=== PATIENT | male | born 1955 | race Caucasian/White ===

== ENCOUNTER 2023-06-10 12:12 | Emergency (ER) | payer BC, SELFPAY ==
[2023-06-10 12:19] VITALS: BP 158/87
[2023-06-10 12:49] LABS: % Basophils 0.4 % (0-2); % Immature Granulocytes 0.5 % (0-0.5); % Lymphocytes 11.6 % (20.5-51.1); % Monocytes 9.1 % (1.7-9.3); % Neutrophils 77.4 % (42.2-75.2); Absolute Eosinophils 0.1 10^3/uL (0-0.7); Absolute Immature Granulocytes 0.1 10^3/uL (0-0.05); Absolute Lymphocytes 1.2 10^3/uL (1.2-3.4); Absolute Monocytes 0.9 10^3/uL (0.1-0.6); Absolute Neutrophils 7.7 10^3/uL (1.4-6.5); Hematocrit 48.5 % (39.0-52.0); Hemoglobin 16.6 g/dL (13.0-18.0); Mean Corp Hgb Conc. 34.2 g/dL (33.0-37.0); Mean Corpuscular Hgb 30.1 pg (27.0-31.0); Mean Platelet Volume 9.5 fL (7.4-10.4); Nucleated Red Blood Cells % 0 % (-); Platelet Count 222 10^3/uL (130-400); Red Blood Cell Count 5.51 10^6/uL (4.70-6.10); White Blood Cell Count 9.9 10^3/uL (4.8-10.8)
[2023-06-10 12:53] LABS: Urine Albumin Negative (Neg - Trace); Urine Bilirubin Negative (Negative); Urine Character Clear (Clear); Urine Color Yellow; Urine Glucose Negative (Negative); Urine Ketone 1+ (Negative); Urine Leukocyte Trace (Negative); Urine Nitrite Negative (Negative); Urine Occult Blood Negative (Negative); Urine Specific Gravity 1.025 (<1.030); Urine Urobilinogen Negative (Neg - 1+)
[2023-06-10 13:03] LABS: ALT (SGPT) 20 U/L (0-50); AST (SGOT) 25 U/L (17-59); Albumin 4.2 g/dl (3.5-5.0); Alkaline Phosphatase 54 U/L (38-126); Blood Urea Nitrogen 18 mg/dl (9-20); Calcium 9.2 mg/dl (8.4-10.2); Carbon Dioxide 25 mmol/L (22-30); Chloride 103 mmol/L (98-107); Glucose 88 mg/dl (70-99); Lipase 192 U/L (23-300); Potassium 4.7 mmol/L (3.5-5.1); Sodium 135 mmol/L (135-145); Total Bilirubin 0.8 mg/dl (0.2-1.3); Total Protein 7.1 g/dl (6.3-8.2); eGFR > 60.00
[2023-06-10 13:21] LABS: Urine Mucus Many; Urine Red Blood Cell 0-2 /HPF (0-2); Urine White Cell 0-2 /HPF (0-5)
--- NOTE | 2023-06-10 13:59 | ED.GENMED ---
History of Present Illness
<Barbara Jeffrey PA-C - Last Filed: 06/15/23 22:40>
General
Chief Complaint: Abdominal Pain
Source: patient
Exam Limitations: none
Time Seen by Provider: 06/10/23 13:23
Nursing documentation reviewed up to this point in time: agreed with
Travel History
Have you had any contact with someone who has COVID-19?: No
Do you have any symptoms of coronavirus? Fever > 100 degrees, chills, cough, shortness of breath, sore throat, loss of taste or smell, muscle aches, or headache?: No
History of Present Illness
History of Present Illness:
Patient is a 67 year old male with known diverticulosis presenting for evaluation of lower abdominal pain. Symptoms started yesterday evening with abdominal pain. He believes pain is mainly located in the left lower quadrant with some radiation to
right lower quadrant. He notes mild nausea but denies any vomiting or diarrhea. He does describe an episode of sharp rectal pain earlier today which resolved after a bowel movement. He has had less frequent bowel movements over the past week.
He denies any fever, chills, chest pain, shortness of breath. He denies any urinary or testicular symptoms.
He was seen by his primary care provider earlier this morning who referred him to the emergency department due to RLQ tenderness on exam and to rule out appendicitis.
He has no history of abdominal surgeries
Past History
<Barbara Jeffrey PA-C - Last Filed: 06/15/23 22:40>
Past History
ED Past Medical History: None
ED Past Surgical History: Other (Hernia repair, vein stripping)
Social History
Tobacco: Non-smoker
Alcohol: None
Drug: None
Personal:
Living: with family
Family History
Family History: Other (nc)
Phy Exam
<Barbara Jeffrey PA-C - Last Filed: 06/15/23 22:40>
Physical Exam
Physical Exam:
General: Well appearing and non-toxic
Vitals: Hypertensive, otherwise vital signs stable; afebrile
HEENT: Atraumatic, normocephalic; pupils equal round and reactive to light, protecting airway
Neck: appears supple, no JVD
CV: RRR, heart sounds normal, no evidence of cyanosis
Resp: Lungs clear bilaterally with no wheezing, rales, or rhochi; No accessory muscle use
Abd: Soft, mild tenderness in LLQ without rebound or guarding; negative Rovsings, negative Psoas; non-distended
Extremities: No deformities, no evidence of cyanosis or edema
Neuro: alert and oriented x 3; grossly intact
Psych: Normal affect
Skin: Intact, no rashes
Course
<Barbara Jeffrey PA-C - Last Filed: 06/15/23 22:40>
Orders/Labs/Results
Orders:
Orders
06/10/23 12:35
Complete Blood Count/With Diff Urgent
Comprehensive Metabolic Panel Urgent
Lipase Urgent
Urinalysis Reflex To Culture Urgent
Date Specimen was Collected: 06/10/23
Time Specimen was Collected: 12:25
Urine Microscopic Reflex Cult Urgent
06/10/23 14:04
CT Abd/Pel (IV only)-DH only Urgent
Comment:
Reason For Exam: lower abdominal pain, hx diverticulosis
0.9% Sodium Chloride 500 ml [Nss] 500 ml IV BOLUS
06/10/23 17:01
Amoxicillin 875 mg/Clav 125 mg [Augmentin 875 mg/125 mg] 1 tablet PO NOW STA
Abnormal Lab Results
06/10/23
12:35
Abs Immat Gran (auto) 0.1 H 10^3/uL
(0-0.05)
Absolute Neuts (auto) 7.7 H 10^3/uL
(1.4-6.5)
Absolute Monos (auto) 0.9 H 10^3/uL
(0.1-0.6)
Neutrophils % 77.4 H %
(42.2-75.2)
Lymphocytes % 11.6 L %
(20.5-51.1)
Urine Ketones 1+ A
(Negative)
Leukocyte Esterase Rfl Trace A
(Negative)
06/10/23 12:35
06/10/23 12:35
Vital Signs
Initial and Last Documented VS:
Initial Vital Signs
Temp Pulse BP Pulse Ox
98.3 F 84 158/87 97
06/10/23 12:19 06/10/23 12:19 06/10/23 12:19 06/10/23 12:19
Last Documented Vital Signs
Temp Pulse BP Pulse Ox
98.3 F 76 144/88 97
06/10/23 12:19 06/10/23 17:19 06/10/23 17:19 06/10/23 12:19
<Stephan Toro, DO - Last Filed: 06/10/23 14:18>
Orders/Labs/Results
Orders:
Orders
06/10/23 12:35
Complete Blood Count/With Diff Urgent
Comprehensive Metabolic Panel Urgent
Lipase Urgent
Urinalysis Reflex To Culture Urgent
Date Specimen was Collected: 06/10/23
Time Specimen was Collected: 12:25
Urine Microscopic Reflex Cult Urgent
06/10/23 14:04
CT Abd/Pel (IV only)-[facility] only Urgent
Comment:
Reason For Exam: lower abdominal pain, hx diverticulosis
0.9% Sodium Chloride 500 ml [Nss] 500 ml IV BOLUS
06/10/23 17:01
Amoxicillin 875 mg/Clav 125 mg [Augmentin 875 mg/125 mg] 1 tablet PO NOW STA
Abnormal Lab Results
06/10/23
12:35
Abs Immat Gran (auto) 0.1 H 10^3/uL
(0-0.05)
Absolute Neuts (auto) 7.7 H 10^3/uL
(1.4-6.5)
Absolute Monos (auto) 0.9 H 10^3/uL
(0.1-0.6)
Neutrophils % 77.4 H %
(42.2-75.2)
Lymphocytes % 11.6 L %
(20.5-51.1)
Urine Ketones 1+ A
(Negative)
Leukocyte Esterase Rfl Trace A
(Negative)
06/10/23 12:35
06/10/23 12:35
Vital Signs
Initial and Last Documented VS:
Initial Vital Signs
Temp Pulse BP Pulse Ox
98.3 F 84 158/87 97
06/10/23 12:19 06/10/23 12:19 06/10/23 12:19 06/10/23 12:19
Last Documented Vital Signs
Temp Pulse BP Pulse Ox
98.3 F 76 144/88 97
06/10/23 12:19 06/10/23 17:19 06/10/23 17:19 06/10/23 12:19
<Barbara Jeffrey PA-C - Last Filed: 06/15/23 22:40>
MDM/Problems Addressed
Differential Diagnosis Includes:
diverticulitis, appendicitis, nephrolithiasis, UTI, constipation
MDM/Problems Addressed:
The patient is a 67 year old male with known history of diverticulosis presenting for evaluation of lower abdominal pain for the past day with associated mild nausea. He denies any fever, chills, vomiting, diarrhea, or symptoms. Sent by PCP to
rule out appendicitis. Patient is mildly hypertensive, otherwise stable vital signs. He is afebrile. On my exam - his abdomen is soft with mild-moderate tenderness in LLQ without rebound or guarding. Negative Rovsing and Psoas test. Will check basic
labs, lipase, UA. Will get CT abdomen/pelvis and start IVF. Patient declines pain medication at this time.
CBC without any clinically significant abnormality. CMP without any abnormal findings. Lipase normal. UA shows no findings suggesting acute infection or blood.
CT shows mild diverticulitis without abscess or perforation.
Given vital signs, normal white count, and mild findings on CT - patient is fit for outpatient management with oral antibiotics. Will discharge with 10 day course Augmentin, return precautions, and PCP follow-up. Patient comfortable with this plan.
All questions answered.
Chronic conditions affecting care:
Diverticulosis
Acute Exacerbation and/or Progression of Chronic Illness:
Acute diverticulitis
<Barbara Jeffrey PA-C - Last Filed: 06/15/23 22:40>
*Radiology
Radiology exam reviewed: preliminary read by ED provider and radiology read reviewed
*Pulse Oximetry
Patient hypoxic: no
*Data Security Consultant Interpretation
Rate: Data Security Consultant- N/A
*Critical Care Note
Total Time (30-74mins, 75-104mins- exclusive of procedures): Not Applicable
ED Attending Note
<Barbara Jeffrey PA-C - Last Filed: 06/15/23 22:40>
-
Portions of this chart may have been created with voice recognition software.� Occasional wrong word or��sound alike� substitutions may have occurred due to the inherent limitations of voice recognition software.
<Stephan Toro DO - Last Filed: 06/10/23 14:18>
ED Attending Note
Patient seen and examined by attending physician: Yes
I performed the substantive portion of visit, reviewed & personally made and approve the management plan that is documented in note by myself or HANNAH.: Yes
I performed a history and physical exam of patient and discussed management with resident, I reviewed resident's note and agree with documented findings and plan of care.: Yes
ED Attending Note:
I evaluated patient at bedside. The patient had some cramping/abdominal pain yesterday evening which is improved today. He was sent here for further evaluation by PMD. He has some mild left lower quadrant tenderness. White count is top normal at
9.9. Will obtain CT imaging
Discharge Plan
Departure
Patient Disposition: Home (Routine Discharge)
Date of Disposition: 06/10/23
Time of Disposition: 17:09
Patient with high blood pressure during this ER visit?: Yes
Condition: Good
Covid-19: Not Applicable
Discharge Problem:
Acute diverticulitis
Instructions: Low Fiber Diet, Constipation, Adult (DC), Diverticulitis (DC), BLOOD PRESSURE
Prescriptions:
New
amoxicillin-pot clavulanate 875-125 mg tablet
1 tab PO BID 10 Days Qty: 20 0RF
No Action
multivitamin [Multi-Day] 1 EACH tablet
1 tab PO DAILY
acetaminophen 325 MG tablet
650 mg PO Q4HPRN PRN (Reason: pain) Qty: 30 0RF
metronidazole 500 MG tablet
500 mg PO TID Qty: 30 0RF
levofloxacin [Levaquin] 750 MG tablet
750 mg PO DAILY Qty: 10 0RF
Referrals:
Rogelio Segovia, [Family Provider] - Follow up in 1 week
Activity Restrictions/Additional Instructions:
-Return to the emergency department with any high fevers, severe abdominal pain, intractable vomiting, severe back pain, worsening in current symptoms, or any other concerns
-A prescription for antibiotic has been sent to your pharmacy. You should take twice per day for the next 10 days
-You can take Motrin as needed for discomfort. A bland and low fiber diet is recommended and you can advance as tolerated
-Follow-up with your primary care for further evaluation/management to ensure symptoms are improving in a week.
Interventions
Interventions:
*Risk Screen - Suicide Last Done: 06/10/23 12:24
*General Assessment Last Done: 06/10/23 12:24
*Neglect/Abuse Screening Last Done: 06/10/23 12:24
*Nursing Disposition Last Done: 06/10/23 17:19
YA-Ubdyoy-Cfmaosssin Assessment Last Done: 06/10/23 14:29
Discharge Date and Time
Discharge Date/Time: 06/10/23 17:19
[2023-06-10] MEDS: NSS 500 IV (14:17)
[2023-06-10] MEDS: AUGMENTIN 875 MG/125 MG 1 TABLET PO (17:13)
[2023-06-10 17:17] VITALS: BP 144/88
[2023-06-10 17:19] VITALS: BP 144/88
== END 2023-06-10 17:19 | disposition home or self-care (01) ==
LOC: EMR 12:12
PROVIDERS: Emergency Medicine; EMERGENCY PHYSICIAN Emergency Medicine; FAMILY PHYSICIAN Family Medicine
DX: K57.92 Diverticulitis of intestine, part unspecified, without perforation or abscess without bleeding (principal)
CPT/HCPCS: 99284; 96360; 74177; 80053; 81003; 81015; 83690; 85025; Q9967

== ENCOUNTER 2024-11-27 13:36 | Emergency (ER) | payer BC, SELFPAY ==
[2024-11-27 13:39] VITALS: BP 167/92
[2024-11-27 14:17] LABS: Hematocrit 46.9 % (39.0-52.0); Hemoglobin 16.2 g/dL (13.0-18.0); Mean Corp Hgb Conc. 34.5 g/dL (33.0-37.0); Mean Corpuscular Volume 87.3 fL (80.0-94.0); Nucleated Red Blood Cells % 0 % (-); Platelet Count 221 10^3/uL (130-400); Red Cell Dist. Width 13.1 % (11.5-14.5)
[2024-11-27 14:20] VITALS: BP 163/82
[2024-11-27 14:41] LABS: ALT (SGPT) 20 U/L (0-50); AST (SGOT) 25 U/L (17-59); Albumin 4.4 g/dl (3.5-5.0); Alkaline Phosphatase 40 U/L (38-126); Blood Urea Nitrogen 20 mg/dl (9-20); Calcium 9.4 mg/dl (8.4-10.2); Carbon Dioxide 24 mmol/L (22-30); Chloride 109 mmol/L (98-107); Glucose 110 mg/dl (70-99); Potassium 4.6 mmol/L (3.5-5.1); Sodium 138 mmol/L (135-145); Total Protein 6.9 g/dl (6.3-8.2); eGFR > 60.00
[2024-11-27 15:00] VITALS: BP 148/73
--- NOTE | 2024-11-27 15:30 | ED.GENMED ---
History of Present Illness
General
Chief Complaint: Dizziness
Source: patient
Exam Limitations: none
Time Seen by Provider: 11/27/24 15:24
Nursing documentation reviewed up to this point in time: agreed with
History of Present Illness
History of Present Illness:
Patient to ED with complaint of dizziness. States he woke yesterday with dizziness. Has had vertigo in the past and was instructed on a head maneuver to relieve symptoms. States symptoms improved some yesterday but worsened today. Now reports
n/v. Denies headache, vision changes. No fever/chills, recent illness. No history of head trauma. Brought self to ED for eval.
Past History
Past History
ED Past Medical History: None
ED Past Surgical History: Other (Hernia repair, vein stripping)
Social History
Tobacco: Non-smoker
Alcohol: None
Drug: None
Personal:
Living: with family
Family History
Family History: Other (nc)
Review of Systems
Review of Systems
Allergies reviewed?: Yes
All Other Systems: ROS reviewed and negative except as documented in HPI and ROS
Constitutional: Reports no symptoms
EENT: Reports no symptoms
Respiratory: Reports no symptoms
Cardiac: Reports no symptoms
ABD/GI: Reports no symptoms
: Reports no symptoms
Musculoskeletal: Reports no symptoms
Skin: Reports no symptoms
Neurological: Reports dizzy
Psychiatric: Reports no symptoms
Phy Exam
General Physical Exam
General Presentation: well appearing and mild distress
General age: appears stated age
General Skin: warm and dry
General Habitus: normal
General Mental: alert
ENT Exam
ENT Exam: EOMI and TM's normal
Eye Exam
Eye Exam: PERRL, EOMI, conjunctiva normal and globe normal
Cardiovascular Exam
Cardiovascular Exam: regular rate/rhythm and no edema
Neurological Exam
Neurological Exam: alert, oriented x3, CN II-XII intact, no motor deficits, no sensory deficits and speech normal
Musculoskeletal Exam
Musculoskeletal Exam: full ROM and neuro vasc intact
Skin Exam
Skin Exam: normal color, warm/dry and no rash
Psychiatric Exam
Psychiatric Exam: normal mood/affect
Course
Orders/Labs/Results
Orders:
Orders
11/27/24 13:44
EKG [Electrocardiogram (*1)] Urgent
Reason for Study: Vertigo / Dizzy
EKG- Treatment ONCE
11/27/24 13:56
CBC/With Diff [Complete Blood Count/With Diff] Urgent
Comprehensive Metabolic Panel Urgent
11/27/24 15:29
CT Head W/o Iv Contrast Urgent
Comment:
Reason For Exam: dizziness
Meclizine [Antivert] 25 mg PO NOW STA
Ondansetron Orally Disint [Zofran Odt (Orally Disintegrating)] 4 mg PO NOW STA
Abnormal Lab Results
11/27/24
13:56
Abs Immat Gran (auto) 0.1 H 10^3/uL
(0-0.05)
Absolute Lymphs (auto) 0.7 L 10^3/uL
(1.2-3.4)
Immature Gran % 0.7 H %
(0-0.5)
Neutrophils % 85.5 H %
(42.2-75.2)
Lymphocytes % 9.3 L %
(20.5-51.1)
Chloride 109 H mmol/L
(98-107)
Glucose 110 H mg/dl
(70-99)
11/27/24 13:56
11/27/24 13:56
Vital Signs
Initial and Last Documented VS:
Initial Vital Signs
Temp Pulse Resp BP Pulse Ox
98.4 F 77 16 167/92 98
11/27/24 13:39 08/17/25 13:39 11/27/24 13:39 11/27/24 13:39 11/27/24 13:39
Last Documented Vital Signs
Temp Pulse Resp BP Pulse Ox
98.4 F 65 15 146/76 98
11/27/24 13:39 11/27/24 16:00 11/27/24 16:00 11/27/24 16:00 11/27/24 16:00
*Radiology
Radiology exam reviewed: radiology read reviewed
*Pulse Oximetry
SaO2: 97
Oxygen Mode of Delivery: Room air
Patient hypoxic: no
*Critical Care Note
Total Time (30-74mins, 75-104mins- exclusive of procedures): Not Applicable
Update Note
Update Note:
Patient to ED wtih complaint of dizziness x 24 hours. Prior history of vertigo. Denies headache, weakness, vision changes. VSS, he remains afebrile. Labs, CT reviewed. No concerning findings. given meclizine in ED with mild inmmprovement. WIll
discharge home, rx provided. Will follow up with PCP this week, given number for vestibular rehab. Given instructions on s/s to return to ED and he is agreeable to plan.
ED Attending Note
-
Portions of this chart may have been created with voice recognition software.� Occasional wrong word or��sound alike� substitutions may have occurred due to the inherent limitations of voice recognition software.
Discharge Plan
Departure
Patient Disposition: Home (Routine Discharge)
Date of Disposition: 11/27/24
Time of Disposition: 17:19
Patient with high blood pressure during this ER visit?: No
Condition: Good
Covid-19: Not Applicable
Discharge Problem:
Vertigo
Instructions: Vertigo (a Type of Dizziness) (DC)
Prescriptions:
New
meclizine 25 mg tablet
25 mg PO TID PRN (Reason: dizziness) Qty: 15 0RF
No Action
multivitamin [Multi-Day] 1 EACH tablet
1 tab PO DAILY
acetaminophen 325 MG tablet
650 mg PO Q4HPRN PRN (Reason: pain) Qty: 30 0RF
metronidazole 500 MG tablet
500 mg PO TID Qty: 30 0RF
levofloxacin [Levaquin] 750 MG tablet
750 mg PO DAILY Qty: 10 0RF
amoxicillin-pot clavulanate 875-125 mg tablet
1 tab PO BID 10 Days Qty: 20 0RF
Referrals:
Rogelio Segovia DO [Family Provider, Family Practice] - Follow up in 2-3 days
Interventions
Interventions:
*Risk Screen - Suicide Last Done: 11/27/24 13:43
*General Assessment Last Done: 11/27/24 13:39
*Neglect/Abuse Screening Last Done: 11/27/24 13:43
*ED- Fall Risk Assessment Last Done: 11/27/24 14:51
*ED COVID-19 Vaccine History Last Done: 11/27/24 14:51
ED- Neurological Assessment Last Done: 11/27/24 14:51
ED Swallowing Screen Last Done: 11/27/24 15:30
Discharge Date and Time
Print Language: SAMI
[2024-11-27] MEDS: ZOFRAN ODT (ORALLY DISINTEGRATING) 4 MG PO (15:36)
[2024-11-27] MEDS: ANTIVERT 25 MG PO (15:36)
[2024-11-27 16:00] VITALS: BP 146/76
== END 2024-11-27 17:31 | disposition home or self-care (01) ==
LOC: EMR 13:36
PROVIDERS: Emergency Medicine; EMERGENCY PHYSICIAN Emergency Medicine; FAMILY PHYSICIAN Family Medicine
DX: R42 Dizziness and giddiness (principal)
CPT/HCPCS: 99284; 70450; 80053; 85025; 93005

== ENCOUNTER 2024-12-02 13:34 | Outpatient (RCR) | payer BC, SELFPAY | END 2024-12-02 23:59 | disposition home or self-care (01) | LOC: RPT 13:34 | PROVIDERS: ATTENDING PHYSICIAN Physician Assistant Medical | DX: R42 Dizziness and giddiness (principal); Z73.6 Limitation of activities due to disability | CPT/HCPCS: 97112; 97163 ==

== ENCOUNTER 2025-01-02 06:18 | Day surgery (SDC) | payer BC, SELFPAY ==
[2025-01-02] VITALS (9 sets, daily range): BP systolic 123–146; BP diastolic 66–84; BMI 26.3
[2025-01-02] MEDS: TYLENOL 1000 MG PO (11:30)
[2025-01-02] MEDS: NORMOSOL-R/PLASMALYTE-A 1000 IV (11:38)
--- NOTE | 2025-01-02 11:40 | HP.FOC2 ---
Focused History & Physical
Chief Complaint
HPI:
Chief Complaint: Recurrent ventral hernia
HPI / Indication for Planned Procedure: Patient is a 69-year-old male recently seen in outpatient surgical evaluation secondary to swelling just above his previous umbilical hernia site. Past medical history notable for prostate cancer status post
RAL prostatectomy and he has also undergone open primary umbilical hernia pair with bilateral inguinal herniorrhaphy at outside hospital. Most recently he underwent repair of a ventral hernia down at the [facility] with mesh plug and
closure of the fascial defect. He has noticed recurrent swelling along the superior aspect of his previous surgical scar just to the right of midline. Physical examination confirm the presence of a reducible recurrent hernia which is also seen on
recent CT imaging from 2023. After discussions regarding treatment options patient wished to pursue operative correction and presents today for scheduled repair.
Relevant Past Medical History: Other (GERD with Garcia's esophagus, history of prostate cancer, history of melanoma, varicose veins)
Relevant Social History: Negative
Relevant Family History: Negative
Relevant Past Surgical History: Positive for (Robotic prostatectomy, bilateral inguinal herniorrhaphy, umbilical hernia repair, ventral hernia repair with mesh)
Review of Systems
Review of Pertinent Systems: All Systems Negative
Medication
See Medication form for detailed medications: Yes
Medication List (including Herbals & OTC):
Skoiovfjedj-Chzffnmtirg-ZTV 1 tab PO DAILY 12/29/24
Metamucil 1 unit PO PRN PRN constipation 12/29/24
Nad+ (Supplement) 1,000 mg PO DAILY 12/29/24
Probiotic 1 cap PO DAILY 12/29/24
Quercetin + Bromelain 1 cap PO DAILY 12/29/24
d-mannose 1,000 mg PO DAILY 12/29/24
magnesium 1 tab PO DAILY 12/29/24
dgudjdoc-bkb-euldy 150 mcg-vit K1 30 mcg-lycop 300 mcg-lutein tablet (Centrum Minis Men 50 Plus) 1 tab PO DAILY 12/29/24
sertraline 50 mg tablet 50 mg PO QPM 12/29/24
zinc 50 mg PO DAILY 12/29/24
Medications Reviewed: Yes
Allergies and Reactions
Patient has Allergies: Yes
Noted Allergies and Reactions:
Allergy/AdvReac Type Severity Reaction Status Date / Time
iodine Allergy Swelling Verified 01/02/25 11:17
Pertinent Physical Exam
All Other Systems: Negative
Head/Neck: Normal
Lungs: Normal
Heart: Normal
Abdomen: Other (Diastasis recti of the upper central abdominal wall. Recurrent ventral hernia along superior aspect of horizontal surgical scar)
Extremities: Normal
Neurological: Normal
Diagnosis / Assessment
69-year-old male presenting for scheduled operative correction recurrent ventral hernia
Plan / Procedure
Robotic assisted laparoscopic repair recurrent ventral hernia with possible mesh excision/removal
Anesthesia/Sedation to be done by Anesthesia Provider: Yes
--- NOTE | 2025-01-02 11:44 | W.SUR.PREOP ---
Pre-Operative Surgical Note
-
I have examined this patient prior to the performance of the scheduled procedure.
The patient's condition is unchanged from the time of the current History and
Physical and the patient is able to undergo the scheduled procedure.
--- NOTE | 2025-01-02 14:17 | W.IMMPOSTOP ---
Addendum entered and electronically signed by Simón Saravia MD 01/02/25 14:35:
#[id number]
Original Note:
Surgical Immed Post Op Note
-
Primary Surgeon: Simón Saravia MD
Assisting Surgeon: JUANITA Munoz; Radha Dorado
Pre-op Diagnosis: Recurrent ventral hernia
Post-op Diagnosis: Recurrent ventral hernia; 5 cm
Procedure Performed: Robotic assisted laparoscopic repair recurrent ventral hernia with mesh; IPOM +, Ventralight ST 15 cm x 10 cm
Robotic assisted laparoscopic removal of old hernia mesh
Anesthesia Type: GETA +0.25% Marcaine incisional and rectus sheath field block
Specimen / Cultures: None
Estimated Blood Loss: 6 mL
Complications: None immediate
Operative Findings: Omental adhesions to mesh plug. No visceral adhesions. Mesh plug removed without disruption of fascia. Recurrent ventral hernia spanning with of diastasis at robotic prostatectomy specimen extraction site. Fascial defect 5 cm
in horizontal length by 1.5 cm in vertical length. Previous umbilical herniorrhaphy intact with what appeared to be a light weight polypropylene mesh well-healed and incorporated into fascia and no meshoma. This repair was not disturbed. Closure
of fascial defect with 0 PDS STRATAFIX symmetric. Intraperitoneal underlay mesh positioning, Ventralight ST 15 cm x 10 cm oriented vertically. Mesh secured with 3 separate strands of 2-0 PDS STRATAFIX spiral. Mobilized central abdominal wall fat
pad/falciform superiorly and inferiorly reapproximated to mesh with 2-0 Vicryl.
== END 2025-01-02 16:26 | disposition home or self-care (01) ==
LOC: SDS 06:18
PROVIDERS: ATTENDING PHYSICIAN Surgery
DX: K43.2 Incisional hernia without obstruction or gangrene (principal)
CPT/HCPCS: 49615; C1713